=== PATIENT | male | born 1965 | race Caucasian/White ===

== ENCOUNTER 2020-05-24 10:32 | Emergency (ER) | payer OTHER, SELFPAY ==
--- NOTE | ~2020-05-24 | CT_ITS ---
EXAMINATION: CT soft tissue neck w con DATE: 05/24/2020 11:40 INDICATION: Left neck mass. TECHNIQUE: Computed tomography (CT) of the neck was performed with 75 mL Omnipaque-350 intravenous co ntrast. Automated exposure control and iterative reconstruction technique were employed. The dose-pascale gth product was 498.81 mGy-cm. COMPARISON: None FINDINGS: There is mild scarring at the lung apices. There is mild emphysema. There are scattered pul monary nodules measuring up to 4 mm. Calcified mediastinal lymph nodes are consistent with old granul omatous disease. There is a necrotic mass involving the left side of the nasopharynx, the left oropha rynx with rightward extension across the midline, the epiglottis, left piriform sinus, left base of t ongue, and left floor of mouth. There is a 12 x 16 mm high left internal jugular chain node. There is mild left supraclavicular lymphadenopathy measuring up to 10 x 11 mm. There is mild mucosal thickeni ng in left maxillary sinus. There is extensive dental disease. There is moderate cervical spondylosis . IMPRESSION: 1. Large necrotic mass centered in the left oropharynx, consistent with squamous cell carcinoma. 2. Left-sided cervical lymphadenopathy, consistent with metastatic disease. 3. Pulmonary nodules measuring up to 4 mm, which may be granulomatous disease or metastatic disease. Reviewed, dictated and finalized at location A. IMPRESSION: 1. Large necrotic mass centered in the left oropharynx, consistent with squamou s cell carcinoma. 2. Left-sided cervical lymphadenopathy, consistent with metastatic disease. 3. Pulmonary nodules measuring up to 4 mm, which may be granulomatous disease o r metastatic disease.
--- NOTE | 2020-05-24 10:35 | ED.URI ---
HPI - URI/Sore Throat General Chief Complaint: Unspecified Stated Complaint: Sore Throat Time Seen by Provider: 05/24/20 10:34 Source: patient and family Mode of arrival: ambulatory Limitations: no limitations History of Present Illness HPI Narrative: Patient is a 54-year-old male with a history of diverticulitis who presents for evaluation of difficulty swallowing and sore throat. Patient states he has had symptoms worsening over the past 3 weeks, states he feels like something is stuck in his throat. He denies fever, chills or night sweats. He does report an unintentional 35 pound weight loss over the past month. He denies any cancer history in himself. There is a history of ovarian cancer in his mother, throat cancer in an uncle. Patient does smoke cigarettes denies use of chewing tobacco. He denies any shortness of breath. He does report mild, chronic cough. Related Data Allergies Allergy/AdvReac Type Severity Reaction Status Date / Time No Known Allergies Allergy Unknown Verified 05/24/20 10:46 Review of Systems Review of Systems: Narrative: CONSTITUTIONAL: Denies fever, chills, or night sweats. EYES: Denies visual changes, redness, or discharge. ENT: Denies rhinorrhea, congestion, reports sore throat, odynophagia, neck swelling CARDIOVASCULAR: Denies chest pain RESPIRATORY: Chronic cough without shortness of breath GASTROINTESTINAL: Denies abdominal pain, nausea, vomiting, or diarrhea. SKIN: Denies rash MUSCULOSKELETAL: Denies back pain NEUROLOGIC: Denies headache [facility] Family History Family History (Updated 09/14/15 @ 23:19 by DOCTOR UNKNOWN) Sibling Family history of diabetes mellitus in first degree relative Social History Social History (Updated 05/24/20 @ 10:46 by Kassandra Evangelista MD) Smoking status: Current every day smoker Tobacco type: cigarettes Alcohol intake: current Substance use: never Living arrangements: with family Gender identity (if verbalized by the patient): Male Exam Narrative: Exam Narrative: GENERAL: Awake, alert, conversant, thin HEAD: Normocephalic, atraumatic. EYES: PERRLA and EOMI. ENT: Nares clear, no rhinorrhea or epistaxis. Mucous membranes moist. Large mass visible in the left posterior oropharynx, patient coloration. No active bleeding. No trismus. Uvula is deviated. NECK: Bilateral neck edema, no erythema. No nodules palpated on the thyroid. CHEST: No respiratory distress, breathing even and non labored HEART: Regular rate, sinus rhythm ABDOMEN:Non distended, non tender EXTREMITIES: Normal range of motion. No edema. SKIN: Warm, dry, no rash. NEURO:No focal deficits. Alert and oriented x3 Course Vital Signs Vital signs: Vital Signs Temperature 37.0 C 05/24/20 10:38 Pulse Rate 88 05/24/20 10:38 Respiratory Rate 18 05/24/20 10:38 Blood Pressure 165/93 H 05/24/20 10:38 Pulse Oximetry 95 05/24/20 10:38 Temperature 37.0 C 05/24/20 10:38 Pulse Rate 88 05/24/20 10:38 Respiratory Rate 18 05/24/20 10:38 Blood Pressure 165/93 H 05/24/20 10:38 Pulse Oximetry 95 05/24/20 10:38 MDM - URI/Sore Throat MDM Narrative Medical decision making narrative: Patient presenting for evaluation of throat pain, mass in throat. At the time of assessment, ABCs are intact and vital signs are stable. Patient is protecting his airway. There is no trismus. There is an obvious mass which appears to be neoplastic on physical exam. IV access obtained and labs are drawn. Patient has leukocytosis, anemia, very mild hyponatremia. No acute kidney injury. 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 Based on patient request, I arrange follow-up at [facility] with head and neck cancer specialist. They are going to try to see the patient in office tomorrow. Patient continues to protect his airway. Patient will be given pain medication to help with the odynophagia. He was advised to call [phone] if he had any
[2020-05-24 10:38] VITALS: BP 165/93; PULSE 88; RESP 18; TEMP 37; O2SAT 95
[2020-05-24 11:06] LABS: Basophils Absolute Auto 0.1 K/mm3 (0.0-0.1); Basophils Percent Auto 0.5 % (0.2-1.2); Eosinophils Absolute Auto 0.2 K/mm3 (0-0.3); Eosinophils Percent Auto 1.4 % (0-4.4); Hematocrit 33.4 % (42.0-52.0); Hemoglobin 11.3 g/dL (14.0-18.0); Immature Granulocyte Absolute 0.08 K/mm3 (0.00-0.031); Immature Granulocyte Percent A 0.5 % (0-0.5); Lymphocytes Absolute Auto 0.95 K/mm3 (0.9-3.2); Lymphocytes Percent Auto 6.3 % (18.3-44.2); Mean Corpuscular HGB Conc 33.8 g/dl (32-36); Mean Corpuscular Hemoglobin 27.8 pg (26-34); Mean Corpuscular Volume 82.1 fl (80-100); Mean Platelet Volume 9.2 fl (7.4-10.4); Monocytes Absolute Auto 1.3 K/mm3 (0.1-0.6); Monocytes Percent Auto 8.7 % (2.6-8.5); Neutrophils Absolute Auto 12.4 K/mm3 (1.3-6.7); Neutrophils Percent Auto 82.6 % (45.5-73.1); Platelet Count Result 508 k/mm3 (150-375); Red Blood Count 4.07 M/mm3 (4.6-6.20); Red Cell Distribution Width 12.4 % (11.5-14.5)
[2020-05-24 11:16] LABS: Alanine Aminotransferase 13 U/L (4-50); Albumin Level 4.1 g/dL (3.5-5.1); Alkaline Phosphatase 65 U/L (38-126); Anion Gap 5 mmol/L (8-16); Aspartate Amino Transferase 29 U/L (17-59); Bilirubin,Total 0.4 mg/dL (0.2-1.3); Blood Urea Nitrogen 8 mg/dL (9-20); Calcium 9.1 mg/dL (8.4-10.2); Carbon Dioxide 31 mmol/L (22-30); Chloride 95 mmol/L (98-107); Estimated CRCL calculation 86 ml/min; Estimated Glomerular Filt Rate > 60; Glucose 109 mg/dL (75-110); Potassium 4.1 mmol/L (3.4-5.0); Sodium 131 mmol/L (137-145)
[2020-05-24 12:48] VITALS: BP 148/86; PULSE 88; RESP 16; O2SAT 98
== END 2020-05-24 12:49 | disposition home or self-care (01) ==
PROVIDERS: Emergency Provider Emergency Medicine
DX: J39.2 Other diseases of pharynx (principal); R59.9 Enlarged lymph nodes, unspecified; R91.8 Other nonspecific abnormal finding of lung field; F17.210 Nicotine dependence, cigarettes, uncomplicated
CPT/HCPCS: 36415; 70491; 80053; 85025; 99284; Q9967